=== PATIENT | female | born 1945 | race Caucasian/White ===

== ENCOUNTER → 2019-07-12 | Outpatient (CLI) | payer MEDICARE | END | disposition home or self-care (01) | LOC: CVU 11:53 | PROVIDERS: ATTEND Internal Medicine Cardiovascular Disease | DX: I77.89 Other specified disorders of arteries and arterioles (principal); R07.89 Other chest pain; I10 Essential (primary) hypertension; Z86.73 Personal history of transient ischemic attack (TIA), and cerebral infarction without residual deficits | CPT/HCPCS: 93880 ==

== ENCOUNTER 2020-09-16 11:22 | Day surgery (SDC) | payer MEDICARE ==
[~2020-09-16] VITALS: Ht 154.9 cm; Wt 56.8 kg
[2020-09-16] MEDS ORDERED: LIDOCAINE 2%, 20ML ONE (12:21)
== END 2020-09-16 13:21 | disposition home or self-care (01) ==
LOC: CACL 11:22
PROVIDERS: ATTEND Internal Medicine Cardiovascular Disease
DX: I63.9 Cerebral infarction, unspecified (principal); I10 Essential (primary) hypertension; I69.354 Hemiplegia and hemiparesis following cerebral infarction affecting left non-dominant side; E78.5 Hyperlipidemia, unspecified; Z79.82 Long term (current) use of aspirin; Z79.899 Other long term (current) drug therapy; Z88.2 Allergy status to sulfonamides; Z91.040 Latex allergy status
CPT/HCPCS: 33285; C1764